=== PATIENT | female | born 1955 | race Caucasian/White ===

== ENCOUNTER 2018-06-09 06:29 | Emergency (ER) | payer OTHER ==
[~2018-06-09] VITALS: Ht 162.6 cm; Wt 77.1 kg
[2018-06-09] MEDS ORDERED: ALBU90OI INH (06:51)
[2018-06-09] MEDS ORDERED: LORA.5 PO (07:26)
== END 2018-06-09 08:10 | disposition home or self-care (01) ==
LOC: ER 06:29
DX: J44.1 Chronic obstructive pulmonary disease with (acute) exacerbation (principal); W19.XXXA Unspecified fall, initial encounter
CPT/HCPCS: 71046; 99284-25

== ENCOUNTER 2019-01-18 12:37 | Emergency (ER) | payer OTHER ==
[~2019-01-18] VITALS: Ht 162.6 cm; Wt 86.2 kg
[~2019-01-18 12:37] MED LIST: ALBU90OI INH; LORA.5 PO
[2019-01-18] MEDS ORDERED: Pepcid40 MG PO (13:14)
[2019-01-18] MEDS ORDERED: ALBU90OI61 INH (13:16)
== END 2019-01-18 13:37 | disposition home or self-care (01) ==
LOC: ER 12:37
DX: R13.10 Dysphagia, unspecified (principal); Z87.891 Personal history of nicotine dependence
CPT/HCPCS: 99282